=== PATIENT | male | born 1985 | race Two or more races ===

== ENCOUNTER 2016-12-30 04:30 | Emergency (ER) | payer MEDICARE ==
[~2016-12-30] VITALS: Ht 185.4 cm; Wt 98.4 kg
[2016-12-30 04:51] VITALS: BP 123/76
--- NOTE | 2016-12-30 06:53 | ED.ADGEN ---
Past Medical History Past Medical History: Bipolar, Schizophrenia Past Surgical History: No Surgical History Alcohol Use: None Drug Use: None Adult General Chief Complaint Chief Complaint: PSYCH EVALUATION HPI HPI Patient is a 31 year old man, history of schizophrenia and bipolar disorder, who presents via EMS from his psychiatric facility, with a report of agitated behavior for medical screening. Upon arrival to the emergency department, patient is calm and cooperative, denying all complaints. He states that "I just want to get back in time for my morning smoke break and breakfast". He denies any auditory or visual hallucinations, states he is taking medications as directed, denies any suicidal or homicidal ideations, or any other complaints at this time. Review of Systems Review of Systems Constitutional: Denies fever or chills. [] Eyes: Denies change in visual acuity. [] HENT: Denies nasal congestion or sore throat. [] Respiratory: Denies cough or shortness of breath. [] Cardiovascular: Denies chest pain or edema. [] GI: Denies abdominal pain, nausea, vomiting, bloody stools or diarrhea. [] : Denies dysuria. [] Musculoskeletal: Denies back pain or joint pain. [] Integument: Denies rash. [] Neurologic: Denies headache, focal weakness or sensory changes. [] Endocrine: Denies polyuria or polydipsia. [] Lymphatic: Denies swollen glands. [] Psychiatric: Denies depression or anxiety. [] Allergies Allergies Allergies Coded Allergies Type Severity Reaction Last Updated Verified No Known Drug Allergies 12/30/16 No Physical Exam Physical Exam Constitutional: Well developed, well nourished, no acute distress, non-toxic appearance. [] HENT: Normocephalic, atraumatic, bilateral external ears normal, oropharynx moist, no oral exudates, nose normal. [] Eyes: PERRLA, EOMI, conjunctiva normal, no discharge. [] Neck: Normal range of motion, no tenderness, supple, no stridor. [] Cardiovascular:Heart rate regular rhythm, no murmur, S1, S2, no rubs or gallops. Lungs & Thorax: Bilateral breath sounds clear to auscultation, no wheezing, rhonchi, rales. No chest or crepitus or tenderness. [] Abdomen: Bowel sounds normal, soft, no tenderness, no masses, no pulsatile masses. [] Skin: Warm, dry, no erythema, no rash. [] Back: No tenderness, no CVA tenderness. [] Extremities: No tenderness, no cyanosis, no clubbing, ROM intact, no edema. [ [place] sign.] Neurologic: Alert and oriented X 3, normal motor function, normal sensory function, no focal deficits noted. [] Psychologic: Affect normal, judgement normal, mood normal. [] Current Patient Data Vital Signs Vital Signs Date Time Temp Pulse Resp B/P (MAP) Pulse Ox O2 Delivery O2 Flow Rate FiO2 12/30/16 04:51 98.5 76 16 97 Room Air 98.5 EKG EKG Not indicated.[] Radiology/Procedures Radiology/Procedures Not indicated.[] Course & Med Decision Making Course & Med Decision Making Pertinent Labs and Imaging studies reviewed. (See chart for details) Patient well-appearing, vital signs within normal limits, is denying all complaints currently, and remains calm and cooperative in the ED, not exhibiting any concerning behaviors or complaints. No indications for additional evaluation based on presentation and history. Nurse Carreon spoke with patient's nursing facility, patient has been cleared for return to nursing facility, EMS transportation arranged, as patient has involuntary hold, and therefore is a potential flight risk, warranting monitored transportation. Patient is agreeable with this plan, was transferred to EMS for transport, exiting the ED without issue. Dragon Disclaimer Dragon Disclaimer This electronic medical record was generated, in whole or in part, using a voice recognition dictation system. Departure Impression: Primary Impression: Encounter for medical screening examination Disposition: HOME, SELF-CARE Condition: STABLE MARCIN FLORES DO Dec 30, 2016 06:53
== END 2016-12-30 05:27 | disposition home or self-care (01) ==
LOC: ER 04:30
DX: Z13.89 Encounter for screening for other disorder (principal); R45.1 Restlessness and agitation; F31.9 Bipolar disorder, unspecified; F20.9 Schizophrenia, unspecified
CPT/HCPCS: 99283